=== PATIENT | female | born 1985 | race Caucasian/White ===

== ENCOUNTER 2016-08-19 06:31 | Day surgery (SDC) | payer OTHER ==
[2016-08-12 18:21] LABS: BASOPHILS 0.5 %; BASOPHILS ABSOLUTE 0.02 10/3/uL (0.0-0.16); EOSINOPHILS 1.2 %; EOSINOPHILS ABSOLUTE 0.05 10/3/uL (0.0-0.53); HEMOGLOBIN 13.2 g/dL (12.0-16.0); LYMPHOCYTES 23.4 %; LYMPHOCYTES ABSOLUTE 0.96 10/3/uL (0.67-4.30); MEAN CORPUS HGB CONC 32.9 g/dL (32.0-36.0); MEAN CORPUSCULAR HEMOGLOB 30.6 pg (26.0-34.0); MEAN PLATELET VOLUME 10.3 fL (9.2-13.0); MONOCYTES 6.1 %; MONOCYTES ABSOLUTE 0.25 10/3/uL (0.21-1.20); NEUTROPHILS 68.8 %; NEUTROPHILS ABSOLUTE 2.83 10/3/uL (2.02-8.40); PLATELET COUNT 230 10/3/uL (150-400); RBC DISTRIBUTION WIDTH 13.4 % (12.0-16.0); RED CELL COUNT 4.31 10/6/uL (4.0-5.6)
[2016-08-12 18:25] LABS: HEMATOCRIT 40.1 % (36.0-48.0); MANUAL DIFF NO %; WHITE BLOOD CELLS 4.1 10/3/uL (4.5-10.5)
[2016-08-12 18:40] LABS: CHLORIDE, SERUM 107 MMOL/L (96-112); GFR AFRICAN AMERICAN 98 ML/MIN (>=60); GFR NON AFRICAN AMERICAN 85 ML/MIN (>=60); GLUCOSE, SERUM 87 MG/DL (60-99); POTASSIUM, SERUM 4.2 MMOL/L (3.5-5.3); SODIUM, SERUM 143 MMOL/L (135-148)
[2016-08-12 18:43] LABS: BUN (BLOOD UREA NITROGEN) 20 MG/DL (6-23); CALCIUM, SERUM 9.3 MG/DL (8.5-10.4); CO2 (CARBON DIOXIDE) 28 MMOL/L (24-34)
--- NOTE | ~2016-08-19 | OP ---
Record Of Operation [facility] [address] [place]. [address] NAME: JAMI LUNA : 81 STATUS : [facility]#: [id number] AGE: 30 ADM/REG DATE : 08/19/16 MR#: [id number] REPORT SERV DATE: 08/21/16 DICTATED BY: PAPO GUZMÁN DATE: 08/21/16 REPORT STATUS : Draft TRANSCRIBED BY: MODL DATE: 08/21/16 DATE OF PROCEDURE: 08/19/2016 PREOPERATIVE DIAGNOSIS: History of cervical cancer. POSTOPERATIVE DIAGNOSIS: History of cervical cancer. PROCEDURE: Removal of tunneled central venous catheter with subcutaneous port, CPT code 53114. SURGEON: Papo Guzmán MD. ANESTHESIA: General. ESTIMATED BLOOD LOSS: Less than 10 mL. DRAINS: None. FINDINGS: Intact port with intact catheter removed. COMPLICATIONS: None. POSTOPERATIVE PLAN: Extubated to PACU. PROCEDURE IN DETAIL: After informed consent was signed, the patient was taken to the operating room and placed in dorsal supine position where conscious sedation was performed where the area in question was injected with local anesthetic and an incision was made over the prior skin scar. This was carried down to the port and catheter. The catheter was secured with a hemostat and removed and pressure applied. The sutures from the port to the anterior abdominal wall fascia were then cut and the port removed in its entirety with the catheter attached. The distal catheter tip was examined and found to be intact. The defect was then irrigated and closed in two layers with 2-0 Vicryl suture and the skin was closed with 4-0 Monocryl and Dermabond. The patient tolerated the procedure well, was awakened, and sent to the PACU in stable condition. MALA/YUSEF Papo Guzmán MD / [id number] CC: Papo Guzmán MD
[~2016-08-19 06:31] MED LIST: *DENIES; COMP10B PO; ENDOMETRIN100 MG PO; ESTROGEN PO; PCET PO
== END 2016-08-19 11:58 | disposition home or self-care (01) ==
LOC: SDC 06:31
PROVIDERS: Obstetrics & Gynecology Gynecology
PROC: 0JPT0XZ Removal of Tunneled Vascular Access Device from Trunk Subcutaneous Tissue and Fascia, Open Approach (ICD-10-PCS; principal; 2016-08-19 07:45)
DX: Z45.2 Encounter for adjustment and management of vascular access device (principal); Z85.41 Personal history of malignant neoplasm of cervix uteri; Z98.890 Other specified postprocedural states
CPT/HCPCS: 36415; 80048; 84703; 85025; J0690; J1885; J2250; J2405; J3010